=== PATIENT | female | born 2000 | race Caucasian/White ===

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

== ENCOUNTER 2020-06-17 11:33 | Emergency (ER) | payer SELFPAY ==
[~2020-06-17] VITALS: Ht 154.9 cm; Wt 50.8 kg
[2020-06-17 12:02] VITALS: BP 123/80
[2020-06-17 12:22] LABS: BASOPHILS % (AUTO) 0 % (0-1); EOSINOPHILS % (AUTO) 0 % (1-7); LYMPHOCYTES % (AUTO) 21 % (22-44); MEAN CORPUSCULAR HEMOGLOBIN 29.6 pg (27.0-34.8); MEAN CORPUSCULAR HGB CONC 33.3 g/dL (32.4-35.8); MEAN PLATELET VOLUME 8.2 fL (7.4-10.4); MONOCYTES % (AUTO) 10 % (2-9); NEUTROPHILS % (AUTO) 69 % (42-75); PLATELET COUNT 235 x10^3/uL (130-400); RED BLOOD COUNT 4.71 x10^6/uL (3.82-5.3); RED CELL DISTRIBUTION WIDTH 12.7 % (9.6-15.2)
[2020-06-17 12:26] LABS: MD NO
[2020-06-17 12:30] LABS: ALBUMIN 3.5 g/dL (3.4-5.0); ANION GAP 3 mmol/L (5-15); CHLORIDE 100 mmol/L (98-107)
[2020-06-17 12:36] LABS: ALANINE AMINOTRANSFERASE 10 U/L (12-78); ALKALINE PHOSPHATASE 107 U/L (45-117); CREATININE 0.84 mg/dL (0.55-1.02); TOTAL PROTEIN 8.7 g/dL (6.4-8.2)
[2020-06-17 12:45] LABS: MICROSCOPIC INDICATED
--- NOTE | 2020-06-17 19:20 | NUR ---
PT HAD ELOPED EARLIER, DR MORELOS NOTIFIED THIS NURSE OF PYELO DX AND TO CALL PT TO RETURN TO ER FOR TX, MESSAGE LEFT WITH PTS NEXT OF KIN PT # NOT WORKING
--- NOTE | 2020-06-18 05:12 | NUR ---
NEXT OF KIN STATES SHE DOES NOT KNOW PT, UNABLE TO CONTACT PT
== END 2020-06-17 14:21 | disposition left against medical advice (07) ==
LOC: ED 14:15
DX: R10.30 Lower abdominal pain, unspecified (principal); R30.0 Dysuria; R10.9 Unspecified abdominal pain
CPT/HCPCS: 36415; 80053; 81001; 83690; 84703; 85025; 87077; 87086; 87186; 99283